=== PATIENT | male | born 2005 | race Two or more races ===

== ENCOUNTER 2024-02-15 19:57 | Emergency (ER) | payer BC ==
[2024-02-15 20:27] LABS: APPEARANCE,URINE CLOUDY; BILIRUBIN,URINE NEGATIVE (NEGATIVE); COLOR,URINE YELLOW; GLUCOSE,URINE NEGATIVE (NEGATIVE); KETONES,URINE NEGATIVE (NEGATIVE); LEUKOCYTE ESTERASE,URINE MODERATE (NEGATIVE); NITRITE,URINE NEGATIVE (NEGATIVE); OCCULT BLOOD,URINE TRACE-INTACT (NEGATIVE); PH,URINE 6.5 (5.0-8.0); PROTEIN,URINE NEGATIVE (NEGATIVE); UROBILINOGEN,URINE 0.2 EU/dL (<2.0)
[2024-02-15 20:41] LABS: BACTERIA,URINE FEW (NEGATIVE); EPITHELIAL CELLS,URINE OCCASIONAL (NONE-FEW); WBC,URINE TOO NUMEROUS TO CT (0-5/HPF)
[2024-02-15] MEDS: cefTRIAXone 500 MG in Lidocaine 1% 1 ML IM STA (20:47)
[2024-02-15] MEDS: Azithromycin 250 MG Tab PO STA (20:47)
[2024-02-15 21:57] LABS: C. TRACHOMATIS BY PCR DETECTED; N. GONORRHOEAE BY PCR DETECTED
== END 2024-02-15 21:17 | disposition home or self-care (01) ==
LOC: MW.ED 19:57
DX: N30.01 Acute cystitis with hematuria (principal); Z11.3 Encounter for screening for infections with a predominantly sexual mode of transmission; Z75.8 Other problems related to medical facilities and other health care
CPT/HCPCS: 81001; 87086; 87491; 87591; 96372; 99284; A9270; J0696; J3490